=== PATIENT | male | born 1935 | race Caucasian/White ===

== ENCOUNTER 2016-12-19 23:58 | Inpatient (IN) | payer OTHER, MEDICARE ==
[~2016-12-19] VITALS: Ht 177.8 cm; Wt 79.1 kg
[~2016-12-19 23:58] MED LIST: METO25 PO
[2016-12-20] VITALS (8 sets, daily range): BP systolic 127–181; BP diastolic 66–89; PULSE 80–102; RESP 16–18; TEMP 96.7–98; O2SAT 96–99
[2016-12-20] MEDS ORDERED: LISI2.5T3 PO ×2 (00:08→00:09)
[2016-12-20] MEDS ORDERED: LORA-392 PO (00:09)
[2016-12-20] MEDS ORDERED: LORA-474 PO (00:09)
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
[2016-12-20 00:40] LABS: AUTOMATED NEUTROPHIL # 11.5 TH/MM3 (1.8-7.7); BASOPHIL # 0.1 TH/MM3 (0-0.2); BASOPHIL % 0.4 % (0.0-2.0); EOSINOPHIL % 0.1 % (0.0-4.0); HEMATOCRIT 44.8 % (39.0-51.0); HEMO FLAGS DIFF FINAL; LYMPH % 9.5 % (9.0-44.0); LYMPHOCYTE # 1.3 TH/MM3 (1.0-4.8); MEAN CELL VOLUME 90.3 FL (80.0-100.0); MEAN CORPUSCULAR HEMOGLOBIN 29.3 PG (27.0-34.0); MEAN CORPUSCULAR HGB CONC 32.4 % (32.0-36.0); MONO % 7.5 % (0.0-8.0); NEUT % 82.5 % (16.0-70.0); PLATELET COUNT 246 TH/MM3 (150-450); RED BLOOD COUNT 4.96 MIL/MM3 (4.50-5.90); RED CELL DISTRIBUTION WIDTH 14.7 % (11.6-17.2); WHITE BLOOD COUNT 13.9 TH/MM3 (4.0-11.0)
[2016-12-20 00:56] LABS: APTT (PATIENT) 32.1 SEC (24.3-30.1); PROTHROMBIN TIME - PATIENT 11.4 SEC (9.8-11.6)
--- NOTE | 2016-12-20 00:56 | RADRPT ---
EXAM DATE/TIME: 12/20/2016 00:28 [facility] COMPARISON: No previous studies available for comparison. INDICATIONS : Shortness of breath. MEDICAL HISTORY : Hypertension. SURGICAL HISTORY : None. ENCOUNTER: Initial ACUITY: 1 day PAIN SCORE: 0/10 LOCATION: Bilateral chest FINDINGS: A single view of the chest demonstrates the lungs to be symmetrically aerated without evidence of mas s, infiltrate or effusion. The cardiomediastinal contours are unremarkable. Osseous structures are intact. CONCLUSION: No evidence of acute cardiopulmonary disease. Lakhwinder Lomeli MD on December 20, 2016 at 0:54 Board Certified Radiologist. This report was verified electronically.
[2016-12-20 01:03] LABS: ANION GAP 18 MEQ/L (5-15); AST (GOT) 341 U/L (15-37); BICARBONATE 14.2 MEQ/L (21.0-32.0); BLOOD UREA NITROGEN 41 MG/DL (7-18); CHLORIDE 111 MEQ/L (98-107); GLOMERULAR FILTRATION RATE 45 ML/MIN (>89); MAGNESIUM 2.8 MG/DL (1.5-2.5); POTASSIUM 4.7 MEQ/L (3.5-5.1); SODIUM (NA) 143 MEQ/L (136-145)
[2016-12-20 01:04] LABS: ALT (GPT) 152 U/L (12-78)
[2016-12-20 01:12] LABS: ALKALINE PHOSPHATASE 50 U/L (45-117); TOTAL BILIRUBIN ADULT 1.4 MG/DL (0.2-1.0)
[2016-12-20 01:14] LABS: ACETAMINOPHEN LESS THAN 2.0 MCG/ML (10.0-30.0)
--- NOTE | 2016-12-20 01:23 | RADRPT ---
EXAM DATE/TIME: 12/20/2016 01:11 [facility] COMPARISON: CT BRAIN W/O CONTRAST, March 23, 2016, 8:14. INDICATIONS : Altered mental status. RADIATION DOSE: 35.90 CTDIvol (mGy) MEDICAL HISTORY : Hypertension. SURGICAL HISTORY : None. ENCOUNTER: Initial ACUITY: 1 day PAIN SCALE: 0/10 LOCATION: cranial TECHNIQUE: Multiple contiguous axial images were obtained of the head. Using automated exposure control and adj ustment of the mA and/or kV according to patient size, radiation dose was kept as low as reasonably a chievable to obtain optimal diagnostic quality images. DICOM format image data is available electro nically for review and comparison. FINDINGS: CEREBRUM: The ventricles are normal for age. No evidence of midline shift, mass lesion, hemorrhage or acute in farction. No extra-axial fluid collections are seen. POSTERIOR FOSSA: The cerebellum and brainstem are intact. The 4th ventricle is midline. The cerebellopontine angle i s unremarkable. EXTRACRANIAL: The visualized portion of the orbits is intact. SKULL: The calvaria is intact. No evidence of skull fracture. CONCLUSION: Negative noncontrast head CT. Lakhwinder Lomeli MD on December 20, 2016 at 1:21 Board Certified Radiologist. This report was verified electronically.
[2016-12-20] MEDS ORDERED: SODIUM CHLOR 0.9% 1000 ML INJ 1,000 ML IV ONE (02:00)
[2016-12-20] MEDS ORDERED: SODIUM CHLORIDE 0.9% FLUSH 10 ML FLUSH IV FLUSH PRN (03:30)
[2016-12-20] MEDS ORDERED: NALOXONE HCL 0.4 MG/ML AMP IV PRN (03:30)
[2016-12-20 04:37] LABS: BLOOD, URINE LARGE (NEG); GLUCOSE,URINE NEG (NEG); KETONE, URINE 150 mg/dL (NEG); MUCUS URINE FEW /lpf (OCC); NITRITE,URINE NEG (NEG); PH, URINE 5.5 (5.0-8.5); URINE COLOR YELLOW (YELLW/STRAW)
[2016-12-20 04:38] LABS: COMMENT (UR) CULT NOT INDICATED; CULTURE IF INDICATED CULT NOT INDICATED
[2016-12-20 04:41] LABS: AMPHETAMINE, URINE NEG (NEG); BARBITURATES, URINE NEG (NEG); COCAINE, URINE NEG (NEG)
[2016-12-20 08:34] LABS: CKMB 23.2 NG/ML (0.5-3.6)
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
--- NOTE | 2016-12-20 10:12 | RADRPT ---
EXAM DATE/TIME: 12/20/2016 09:54 [facility] COMPARISON: No previous studies available for comparison. INDICATIONS : Bilateral rib pain post fall primarily on left side. MEDICAL HISTORY : Hypertension. SURGICAL HISTORY : Left finger amputation. ENCOUNTER: Subsequent ACUITY: 4 - 6 days PAIN SCORE: 8/10 LOCATION: Bilateral chest ribs FINDINGS: There is fracture of left seventh rib which is acute. No definite pneumothorax is seen for technique. Chronic degenerative changes are present in the left shoulder and not changed. CONCLUSION: Left seventh rib fracture. Kylah Sumner MD on December 20, 2016 at 10:09 Board Certified Radiologist. This report was verified electronically.
[2016-12-20] MEDS: SODIUM CHLORIDE 0.9% FLUSH 10 ML FLUSH IV FLUSH SCH ×2 (10:19→21:00)
[2016-12-20] MEDS: SODIUM CHLOR 0.9% 1000 ML INJ 1,000 ML IV SCH (10:20)
--- NOTE | 2016-12-20 11:05 | EKG ---
Date Performed: 12/20/2016 Time Performed: 00:02:25 PTAGE: 81 years EKG: Sinus rhythm MARKED LEFT AXIS DEVIATION LAFB RIGHT BUNDLE BRANCH BLOCK ABNORMAL ECG NO PREVIOUS TRACING DOCTOR: Can Oscar Interpretating Date/Time 12/20/2016 11:04:34
--- NOTE | 2016-12-20 12:25 | PD.PSY.CON ---
Provisional Diagnosis Admission Date Dec 20, 2016 at 09:12 [place] I. Unspecified psychosis, history of depression and anxiety [place] II. Deferred [place] III. Hypertension, acute kidney injury, dehydration [place] IV. Continues distressing visual hallucination [place] V. 45 History of Present Illness Service Psychiatry Consult Requested By Primary Care Physician Unknown HPI The patient is a 81-year-old man, domiciled in a correction community in [facility], psychiatric history of depression and anxiety, no hospitalizations, 1SAs, on Lorazepam 2 mg tid, who now is more oriented and able to give history, medical history of History of hypertension who about 3 days prior to admission he states that he feels that he is not in his "right mine, hallucinating". Patient was found with multiple metabolic abnormalities. Now he is admitted due to Acute kidney injury secondary to dehydration, rhabdomyolysis. Multiple wounds ecchymosis abrasions on the extensor surfaces of the knees L gross. on psychiatric evaluation patient is calm, cooperative, pleasant. He says that in the last 6 months he has been having experiences of seeing people and having stressing, anxiety provoking visual and auditory hallucinations. He says that 2 days ago he was absolutely sure that many people were coming inside his house to steal his money and his furniture. He says that he also saw the county court judge and a physician coming together inside his house to examining him. He says that when he had these experiences he was very anxious and he could hear that they were talking to him, but he doesn't remember. Patient denies depressive symptoms, he says that he is a happy person , usually a loner, but he enjoys his life. Due to this hallucination he has been feeling anxious, sleeping poorly, and feeling paranoid. Patient stated that in the last 6 months he has had multiple episodes late this, but the last one was the worst. At this moment he denies visual and auditory hallucinations , he denies suicidal or homicidal ideation. Patient is fully oriented 3, Mini- Mental state was performed, patient scored 27/30. With just impairment found in recent recall. No attention deficit, no filtration of consciousness present. The patient denies the use of illicit drugs, he drinks alcohol occasionally. Review of Systems Constitutional: DENIES: Diaphoretic episodes, Fatigue, Fever, Weight gain, Weight loss, Chills, Dizziness, Change in appetite, Night Sweats Endocrine: DENIES: Heat/cold intolerance, Polydipsia, Polyuria, Polyphagia Eyes: DENIES: Blurred vision, Diplopia, Eye inflammation, Eye pain, Vision loss , Photosensitivity, Double Vision Ears, nose, mouth, throat: DENIES: Tinnitus, Hearing loss, Vertigo, Nasal discharge, Oral lesions, Throat pain, Hoarseness, Ear Pain, Running Nose, Epistaxis, Sinus Pain, Toothache, Odynophagia Respiratory: DENIES: Apneas, Cough, Snoring, Wheezing, Hemoptysis, Sputum production, Shortness of breath Cardiovascular: DENIES: Chest pain, Palpitations, Syncope, Dyspnea on Exertion , PND, Lower Extremity Edema, Orthopnea, Claudication Gastrointestinal: DENIES: Abdominal pain, Black stools, Bloody stools, Constipation, Diarrhea, Nausea, Vomiting, Difficulty Swallowing, Anorexia Genitourinary: DENIES: Sexual dysfunction, Urinary frequency, Urinary incontinence, Urgency, Hematuria, Dysuria, Nocturia, Penile Discharge, Testicular Pain, Testicular Swelling Integumentary: DENIES: Abnormal pigmentation, Nail changes, Pruritus, Rash Hematologic/lymphatic: DENIES: Bruising, Lymphadenopathy Immunologic/allergic: DENIES: Eczema, Urticaria Neurologic: DENIES: Abnormal gait, Headache, Localized weakness, Paresthesias, Seizures, Speech Problems, Tremor, Poor Balance Psychiatric: DENIES: Anxiety, Confusion, Mood changes, Depression, Hallucinations, Agitation, Suicidal Ideation, Homicidal Ideation, Delusions Past Family Social History Coded Allergies: No Known Allergies (Unverified , 03/23/16) Active Scripts Metoprolol Tartrate 25 mg 25 Mg Tab25 Mg PO Q12HR 31 Days Ref 2 Prov:Calos Suazo MD 03/24/16 Reported Medications Lorazepam (Ativan)1 Mg Tab1 Mg PO TID PRN (ANXIETY AND/OR AGITATION) Ref 0 12/20/16 Lisinopril 2.5 Mg Tab PO DAILY #30 TAB Ref 0 12/20/16 Discontinued Reported Medications Lorazepam (Ativan)0.5 Mg Tab0.5 Mg PO DAILY PRN (ANXIETY AND/OR AGITATION) Ref 0 12/20/16 Lisinopril 2.5 Mg Tab PO DAILY #30 TAB Ref 0 12/20/16 Current Medications Medications (Trade) Dose Ordered Sig/Kem Route Start Time Stop Time Status Last Admin (NS Flush) 2 ml UNSCH PRN IV FLUSH 7/12/17 03:30 (NS Flush) 2 ml BID IV FLUSH 12/20/16 09:00 12/20/16 10:19 Naloxone HCl 0.4 mg 0.4 mg UNSCH PRN IV 12/20/16 03:30 (NS 1000 ml Inj) 1,000 ml @ 125 mls/hr Q8H IV 12/20/16 09:15 12/20/16 10:20 Family History Patient denies family psychiatric history Social History Patient was born and raised in [place], he lives in [place] in a senior community, , he has 2 kids, supported by snf benefits, his highest level of education is 2 years college Patient's Strengths (min. 2) Good insight, good sense of humor, family support Physical Exam No tremors, no ideas, no withdrawal, Vital Signs Vital Signs Date Time Temp Pulse Resp B/P Pulse Ox O2 Delivery O2 Flow Rate FiO2 12/20/16 08:16 97.6 87 16 139/72 98 12/20/16 06:03 Room Air Lab Results Laboratory Tests Test 12/20/16 12/20/16 12/20/16 12/20/16 00:10 02:04 04:16 05:57 White Blood Count 13.9 Red Blood Count 4.96 Hemoglobin 14.5 Hematocrit 44.8 Mean Corpuscular Volume 90.3 Mean Corpuscular Hemoglobin 29.3 Mean Corpuscular Hemoglobin 32.4 Concent Red Cell Distribution Width 14.7 Platelet Count 246 Mean Platelet Volume 9.1 Neutrophils (%) (Auto) 82.5 Lymphocytes (%) (Auto) 9.5 Monocytes (%) (Auto) 7.5 Eosinophils (%) (Auto) 0.1 Basophils (%) (Auto) 0.4 Neutrophils # (Auto) 11.5 Lymphocytes # (Auto) 1.3 Monocytes # (Auto) 1.0 Eosinophils # (Auto) 0.0 Basophils # (Auto) 0.1 CBC Comment DIFF FINAL Differential Comment Prothrombin Time 11.4 Prothromb Time International 1.0 Ratio Activated Partial 32.1 Thromboplast Time Sodium Level 143 Potassium Level 4.7 Chloride Level 111 Carbon Dioxide Level 14.2 Anion Gap 18 Blood Urea Nitrogen 41 Creatinine 1.49 Estimat Glomerular Filtration 45 Rate Random Glucose 85 Calcium Level 9.2 Magnesium Level 2.8 Total Bilirubin 1.4 Aspartate Amino Transf 341 (AST/SGOT) Alanine Aminotransferase 152 (ALT/SGPT) Alkaline Phosphatase 50 Ammonia 15 Troponin I 0.06 0.03 Total Protein 7.7 Albumin 3.8 Lipase 66 Thyroid Stimulating Hormone 1.130 3rd Gen Salicylates Level LESS THAN 1.7 Acetaminophen Level LESS THAN 2.0 Ethyl Alcohol Level LESS THAN 3 Lactic Acid Level 1.3 Urine Color YELLOW Urine Turbidity CLEAR Urine pH 5.5 Urine Specific [place] 1.026 Urine Protein 100 Urine Glucose (UA) NEG Urine Ketones 150 Urine Occult Blood LARGE Urine Nitrite NEG Urine Bilirubin NEG Urine Urobilinogen LESS THAN 2.0 Urine Leukocyte Esterase NEG Urine RBC 1 Urine WBC LESS THAN 1 Urine Mucus FEW Microscopic Urinalysis Comment CULT NOT INDICATED Urine Opiates Screen NEG Urine Barbiturates Screen NEG Urine Amphetamines Screen NEG Urine Benzodiazepines Screen NEG Urine Cocaine Screen NEG Urine Cannabinoids Screen NEG Total Creatine Kinase 21948 Creatine Kinase MB 23.2 Creatine Kinase MB % 0.2 Result Diagram: 12/20/16912/20/169 Imaging Last Impressions Head CT 12/20/1612 Signed Impressions: Service Date/Time: Tuesday, December 20, 2016 01:11 - CONCLUSION: Negative noncontrast head CT. Lakhwinder Lomeli MD Chest X-Ray 12/20/1612 Signed Impressions: Service Date/Time: Tuesday, December 20, 2016 00:28 - CONCLUSION: No evidence of acute cardiopulmonary disease. Lakhwinder Lomeli MD Mental Status Examination Appearance man, multiple bruises in his face, age appearing, calm and cooperative and pleasant Speech: Unremarkable Orientation: x3 Memory: Unremarkable Thought Process: Logical Thought Content: Unremarkable Hallucination Type: None Attention and Concentration: Good Suicidal Ideation: No Previous Suicide Attempts: Yes Homicidal Ideation: No Previous Homicide Attempts: No Judgment: WNL Affect: Good Mood: Appropriate Motor Activity: Normal gait Assessment & Plan Problem List: (1) Unspecified psychosis Assessment & Plan: The patient is a 81-year-old man with psychiatric history of depression and anxiety, no hospitalizations, 1SAs, on Lorazepam 2 mg tid, who now is more oriented and able to give history, medical history of History of hypertension who about 3 days prior to admission he states that he feels that he is not in his "right mine, hallucinating". Patient was found with multiple metabolic abnormalities. Now he is admitted due to Acute kidney injury secondary to dehydration, rhabdomyolysis. Multiple wounds ecchymosis abrasions on the extensor surfaces of the knees L gross. on psychiatric evaluation patient is calm, cooperative, pleasant. He says that in the last 6 months he has been having experiences of seeing people and having stressing, anxiety provoking visual and auditory hallucinations. Patient has been also increasingly paranoid unguarded due to this hallucinations. However he denies depressive symptoms, he denies catina, he denies suicidal and homicidal ideation. At this moment etiology of this perceptual disturbances isn't clear. New onset visual hallucination at this age are usually related with underlying medical conditions, rather than psychiatric. UTI, acute kidney injury might have a preponderant role in this presentation, but investigation should continue. Alcohol or other substances intoxication or withdrawal have to be in the differential. Full medical workup needs to be done. CT scan is negative. Would consider a neurology consult to rule out neurological causes of hallucinations. Will start clonazepam 0.5 mg 3 times a day to substitute Ativan 2 mg 3 times a day. Will order Seroquel 12.5 mg at bedtime to help with psychosis. Patient might benefit of psychiatric admission in the medical- psychiatric unit. I will follow up. ICD Code: F29 Assessment & Plan Estimated LOS: Douglas Shelley MD Dec 20, 2016 12:24
[2016-12-20] MEDS: clonazePAM 0.5 MG TAB PO SCH ×2 (14:00→21:00)
--- NOTE | 2016-12-20 16:12 | EKG ---
Date Performed: 12/20/2016 Time Performed: 12:12:48 PTAGE: 81 years EKG: Sinus rhythm MARKED LEFT AXIS DEVIATION RIGHT BUNDLE BRANCH BLOCK ABNORMAL ECG PREVIOUS TRACING : 12/20/2016 07.37 Compared to prior tracing no significant change DOCTOR: Can Oscar Interpretating Date/Time 12/20/2016 16:11:34
--- NOTE | 2016-12-20 16:48 | EKG ---
Date Performed: 12/20/2016 Time Performed: 07:37:01 PTAGE: 81 years EKG: Sinus rhythm MARKED LEFT AXIS DEVIATION RIGHT BUNDLE BRANCH BLOCK ABNORMAL ECG PREVIOUS TRACING : 12/20/2016 00.02 Compared to prior tracing no significant change DOCTOR: Can Oscar Interpretating Date/Time 12/20/2016 16:47:32
[2016-12-20] MEDS: QUEtiapine FUMARATE 25 MG TAB PO SCH (20:52)
[2016-12-21] VITALS (8 sets, daily range): BP systolic 140–163; BP diastolic 67–79; PULSE 63–87; RESP 14–18; TEMP 97.8–98.7; O2SAT 93–97
[2016-12-21] MEDS: SODIUM CHLOR 0.9% 1000 ML INJ 1,000 ML IV SCH ×4 (01:03→23:30)
[2016-12-21] MEDS: clonazePAM 0.5 MG TAB PO SCH ×3 (06:00→22:34)
[2016-12-21 07:44] LABS: AUTOMATED NEUTROPHIL # 5.5 TH/MM3 (1.8-7.7); BASOPHIL # 0.1 TH/MM3 (0-0.2); BASOPHIL % 0.6 % (0.0-2.0); EOSINOPHIL # 0.3 TH/MM3 (0-0.4); EOSINOPHIL % 4.2 % (0.0-4.0); HEMATOCRIT 35.1 % (39.0-51.0); HEMO FLAGS DIFF FINAL; LYMPH % 18.8 % (9.0-44.0); LYMPHOCYTE # 1.5 TH/MM3 (1.0-4.8); MEAN CELL VOLUME 89.4 FL (80.0-100.0); MEAN CORPUSCULAR HEMOGLOBIN 29.6 PG (27.0-34.0); MEAN CORPUSCULAR HGB CONC 33.2 % (32.0-36.0); NEUT % 67.4 % (16.0-70.0); PLATELET COUNT 178 TH/MM3 (150-450); RED BLOOD COUNT 3.92 MIL/MM3 (4.50-5.90); RED CELL DISTRIBUTION WIDTH 14.2 % (11.6-17.2); WHITE BLOOD COUNT 8.1 TH/MM3 (4.0-11.0)
[2016-12-21] MEDS: SODIUM CHLORIDE 0.9% FLUSH 10 ML FLUSH IV FLUSH SCH ×2 (08:17→22:35)
[2016-12-21 08:38] LABS: ALKALINE PHOSPHATASE 34 U/L (45-117); ALT (GPT) 105 U/L (12-78); ANION GAP 8 MEQ/L (5-15); AST (GOT) 135 U/L (15-37); BLOOD UREA NITROGEN 29 MG/DL (7-18); CHLORIDE 115 MEQ/L (98-107); CREATINE KINASE 3985 U/L (39-308); GLOMERULAR FILTRATION RATE 89 ML/MIN (>89); POTASSIUM 3.7 MEQ/L (3.5-5.1); SODIUM (NA) 142 MEQ/L (136-145); TOTAL BILIRUBIN ADULT 0.9 MG/DL (0.2-1.0)
[2016-12-21 08:58] LABS: CKMB 12.2 NG/ML (0.5-3.6)
--- NOTE | 2016-12-21 10:22 | HHI.PR ---
Subjective Remarks patient awake and alert, no pain complains except for upper back discomfort- requesting for heating pads patient very clear in his mind that he was Hallucinating, I am sure- renarrated the story that he felt trap in a freight elevator for the past few days and was on the floor crawling and trying to get out" "I am sure it happened" now po 100%, oriented to person Objective Vitals Vital Signs Date Time Temp Pulse Resp B/P Pulse Ox O2 Delivery O2 Flow Rate FiO2 12/21/16 07:42 98.7 79 18 140/69 96 12/21/16 01:37 98.0 74 18 146/67 96 12/21/16 01:16 63 12/20/16 15:31 97.6 84 16 159/77 96 12/20/16 12:00 97.6 80 18 127/66 97 Result Diagram: 12/21/16 0725 12/21/16 0725 Imaging Last Impressions Head CT 12/20/16 001 Signed Impressions: Service Date/Time: Tuesday, December 20, 2016 01:11 - CONCLUSION: Negative noncontrast head CT. Lakhwinder Lomeli MD Chest X-Ray 12/20/16 0013 Signed Impressions: Service Date/Time: Tuesday, December 20, 2016 00:28 - CONCLUSION: No evidence of acute cardiopulmonary disease. Lakhwinder Lomeli MD Ribs X-Ray 12/20/16 0000 Signed Impressions: Service Date/Time: Tuesday, December 20, 2016 09:54 - CONCLUSION: Left seventh rib fracture. K. Paddy Sumner MD Objective Remarks awake and alert, oriented x 3 anicteric lungs clear regular rhythm abdomen soft, nontender, superficial hematoma right lower back area sacral area- mild erythema extremities no edema moves all extremities spontaenously- 5/5 individual muscle groups grossly no sensory deficits gait testing deferred- will ask PT to eval A/P Problem List: (1) Altered mental status ICD Code: R41.82 Status: Acute (2) Acute renal failure ICD Code: N17.9 Status: Acute (3) Rhabdomyolysis ICD Code: M62.82 Status: Acute Assessment and Plan 81-year-old male who was found on the floor by neighbors likely for the past 3- 4 days now patient states he was hallucinating. Acute kidney injury secondary to dehydration rhabdomyolysis. continue IVF. renal functions improving, CK trending down, non oliguric Multiple wounds ecchymosis abrasions on the extensor surfaces of the knees Wound care nurse consult Left 7th rib fracture - Incentive spirometry hourly without fail BAck pain- upper back- moves all extremities heating pads. if persist. Monitor BMP, LFTs- wont start any NSAIds or tylenol with abnormal levels Hallucinations- multifactorial- Underlying psychiatric history ? starting dementia- improved but still believed this happened adn appears mildly paranoid metabolic- renal functions improving - underlying psychiatric history- appreciate Dr. Perea's help Head CT negative- neuro paulino appear stable restarted on Ativan and Seroquel History of hypertension on RAYMUNDO inhibitor- held monitor Elevated liver function tests likely from rhabdo myelolysis trending down Will get PT OT consult. consider xrays if there is persistent pain Patient may benefit from med/psychiatry floor customer operations manager consult to look into home situation. possible SNF Out of bed to chairbid Problem Qualifiers (1) Altered mental status: Qualified Code: R41.0 - Disorientation Renato Sewell MD Dec 21, 2016 10:22
[2016-12-21] MEDS ORDERED: POTASSIUM CHLORIDE 10 MEQ CONTROLLED RELEASE TAB PO ONE (10:30)
[2016-12-21] MEDS: QUEtiapine FUMARATE 25 MG TAB PO SCH (22:34)
[2016-12-22] VITALS (7 sets, daily range): BP systolic 137–162; BP diastolic 76–86; PULSE 70–105; RESP 16–17; TEMP 97.4–98.2; O2SAT 95–98
[2016-12-22] MEDS: clonazePAM 0.5 MG TAB PO SCH ×3 (06:03→23:17)
[2016-12-22 07:57] LABS: ALT (GPT) 92 U/L (12-78); ANION GAP 8 MEQ/L (5-15); AST (GOT) 78 U/L (15-37); BICARBONATE 20.3 MEQ/L (21.0-32.0); BLOOD UREA NITROGEN 16 MG/DL (7-18); CHLORIDE 114 MEQ/L (98-107); GLOMERULAR FILTRATION RATE 95 ML/MIN (>89); POTASSIUM 3.4 MEQ/L (3.5-5.1); SODIUM (NA) 142 MEQ/L (136-145)
[2016-12-22 08:09] LABS: ALKALINE PHOSPHATASE 34 U/L (45-117); CREATINE KINASE 1320 U/L (39-308); TOTAL BILIRUBIN ADULT 0.7 MG/DL (0.2-1.0)
[2016-12-22 08:39] LABS: CKMB 4.7 NG/ML (0.5-3.6)
[2016-12-22] MEDS: SODIUM CHLORIDE 0.9% FLUSH 10 ML FLUSH IV FLUSH SCH ×2 (09:57→20:43)
[2016-12-22] MEDS: LIDOCAINE HCL 5% PATCH T-DERMAL SCH (09:57)
[2016-12-22] MEDS: SODIUM CHLOR 0.9% 1000 ML INJ 1,000 ML IV SCH ×2 (09:58→17:04)
--- NOTE | 2016-12-22 10:10 | HHI.PR ---
Subjective Remarks deficitely much more awake and alert, oriented x 3, no prompting needed- with response ff all commands stated that he "was hallucinating" generalized weakness Objective Vitals Vital Signs Date Time Temp Pulse Resp B/P Pulse Ox O2 Delivery O2 Flow Rate FiO2 12/22/16 08:00 97.6 80 17 156/76 96 12/22/16 04:40 97.7 79 16 151/77 98 12/22/16 00:45 97.4 73 16 137/76 95 12/21/16 20:30 97.8 82 16 155/79 93 12/21/16 19:54 98.1 84 18 162/72 95 12/21/16 15:45 97.8 87 18 163/77 97 12/21/16 12:07 98.3 82 14 144/67 97 I/O 12/21/16 12/21/16 12/21/16 12/22/16 12/22/16 12/22/16 07:00 15:00 23:00 07:00 15:00 23:00 Intake Total 1360 ml 120 ml 480 ml Output Total 200 ml 900 ml Balance 1360 ml -80 ml -420 ml Intake Oral 360 ml 120 ml 480 ml IV Total 1000 ml Output Urine Total 200 ml 900 ml # Voids 1 1 # Bowel Movements 0 0 Result Diagram: 12/21/16 0725 12/22/16 0706 Imaging Last Impressions Head CT 12/20/1612 Signed Impressions: Service Date/Time: Tuesday, December 20, 2016 01:11 - CONCLUSION: Negative noncontrast head CT. Lakhwinder Lomeli MD Chest X-Ray 12/20/1612 Signed Impressions: Service Date/Time: Tuesday, December 20, 2016 00:28 - CONCLUSION: No evidence of acute cardiopulmonary disease. Lakhwinder Lomeli MD Ribs X-Ray 12/20/16 0000 Signed Impressions: Service Date/Time: Tuesday, December 20, 2016 09:54 - CONCLUSION: Left seventh rib fracture. Kylah Sumner MD Objective Remarks awake and alert, oriented x 3 anicteric lungs clear regular rhythm abdomen soft, nontender, superficial hematoma right lower back area sacral area- mild erythema extremities no edema moves all extremities spontaneously- 5/5 individual muscle groups grossly no sensory deficits weak when stood up- PT at bedside skin with multiple skin breakdwons, ecchymoses- knees, arms A/P Problem List: (1) Altered mental status ICD Code: R41.82 Status: Acute (2) Acute renal failure ICD Code: N17.9 Status: Acute (3) Rhabdomyolysis ICD Code: M62.82 Status: Acute Assessment and Plan 81-year-old male who was found on the floor by neighbors likely for the past 3- 4 days now patient states he was hallucinating. Acute kidney injury secondary to dehydration rhabdomyolysis. continue IVF- decrease rate- to 70 cc/hr renal functions improving, CK trending down, non oliguric Multiple wounds ecchymosis abrasions on the extensor surfaces of the knees Wound care nurse consulted Left 7th rib fracture - Incentive spirometry hourly without fail BAck pain- upper back--improved moves all extremities heating pads. Lidoderm aptch Hallucinations- multifactorial- Underlying psychiatric history ? - MS and response improvign LIkely with dementia- metabolic- renal functions improving - underlying psychiatric history- appreciate Dr. Perea's help Head CT negative- neuro paulino appear stable restarted on Ativan and Seroquel History of hypertension on RAYMUNDO inhibitor- held monitor Elevated liver function tests likely from rhabdo myelolysis trending down PT OT consult. Patient may benefit from med/psychiatry floor or PT- still very weak on standing international project manager consult to look into home situation. possible SNF Out of bed to chair bid Problem Qualifiers (1) Altered mental status: Qualified Code: R41.0 - Disorientation Renato Sewell MD Dec 22, 2016 10:10
[2016-12-22] MEDS: POTASSIUM CHLORIDE 10 MEQ CONTROLLED RELEASE TAB PO SCH ×2 (12:00→20:43)
[2016-12-22] MEDS: POTASSIUM CHLORIDE INJ 30 MEQ in DEXT 5%-NACL 0.9% 1000 ML INJ 1,000 ML IV SCH ×2 (12:01→23:47)
--- NOTE | 2016-12-22 14:30 | PD.WCN.NOT ---
Wound Consult Description: Generalized-multiple abrasions, skin breakdown Communicated with: RN Missael Bhandari mountainside and Doctor Donato Recommendation: Please cleanse mulitple open abrasions to bilateral upper and lower extremeties with normal saline or wound truck car and bus cleaner and apply Xeroform in single layer just covering wound beds and cover with dry 4x4 gauze pads, secure with rolled gauze and tape and change every other day or PRN if saturated or dislodged. Please apply skin prep bid to Stage 1 sacral pressure injury, stage 1 pressure injury to posterior head and healing stage 2 pressure injury to posterior head and leave open to air Leave all dry intact scabs open to air. Please turn patient every 2 hours or PRN if in bed to keep pressure off posterior head and sacrum. Additional Information: Patient seen on [address] [place] [address] for evaluation of Generalized-multiple abrasions, and skin breakdown. Patient noted with multiple scabs and abrasions to bilateral upper extremities, lower extremities and face. Nurses are changing dressing for all open abrasion using Xeroform single layer dressing just over wound beds covered with dry 4x4 gauze, secured with rolled gauze and tape. This is appropriate for wounds. All scabs are noted intact and dry. Left all scabs open to air. Patient is complaining about of discomfort to posterior head and lower back area.Posterior head noted with non blanchable erythema measuring ~1cm x ~ 1cm that is near a resolving stage 2 that is ~2cm x ~2cm. Wound is dry and non draining and appears with new epithelial tissue.Periwound to stage 1 and healing stage 2 to posterior head present with blanchable erythema to periwound. Patient positioned on R side to reveal an area of non blanchable sacral erythema. Periwound is noted with blanchable erythema that is circumferential to non blanchable erythema.Stage 1 pressure injury to sacral area measures ~1cm x ~1cm Applied skin prep to all stage 1 pressure injuries and left open to air. Applied skin prep to healing stage 2 pressure injury and left open to air Caroline Tapia [facility] Dec 22, 2016 14:30
[2016-12-22] MEDS: QUEtiapine FUMARATE 25 MG TAB PO SCH (20:43)
[2016-12-22] MEDS: REMOVE OLD LIDOCAINE PATCH T-DERMAL SCH (20:48)
[2016-12-23] VITALS (8 sets, daily range): BP systolic 135–185; BP diastolic 69–92; PULSE 64–115; RESP 16–18; TEMP 97–99.1; O2SAT 94–97
[2016-12-23] MEDS: SODIUM CHLOR 0.9% 1000 ML INJ 1,000 ML IV SCH ×3 (05:18→17:15)
[2016-12-23] MEDS: clonazePAM 0.5 MG TAB PO SCH ×3 (06:14→22:05)
[2016-12-23] MEDS: SODIUM CHLORIDE 0.9% FLUSH 10 ML FLUSH IV FLUSH SCH ×2 (09:00→20:01)
[2016-12-23] MEDS: POTASSIUM CHLORIDE 10 MEQ CONTROLLED RELEASE TAB PO SCH ×2 (09:20→20:01)
[2016-12-23] MEDS: LIDOCAINE HCL 5% PATCH T-DERMAL SCH (09:21)
--- NOTE | 2016-12-23 10:05 | HHI.PR ---
Subjective Remarks no complains no fever chest pains or shortness of breath VS- tachycardic elevated BPs- earlier with one reading 190/77 history of hyeprtension on Lisinopril Objective Vitals Vital Signs Date Time Temp Pulse Resp B/P Pulse Ox O2 Delivery O2 Flow Rate FiO2 12/23/16 04:00 97.0 81 16 155/81 95 12/23/16 00:00 98.6 80 16 135/76 94 12/22/16 21:00 70 12/22/16 20:00 98.1 84 17 162/82 98 12/22/16 12:00 98.2 105 17 139/86 97 12/22/16 11:15 75 I/O 12/22/16 12/22/16 12/22/16 12/23/16 12/23/16 12/23/16 07:00 15:00 23:00 07:00 15:00 23:00 Intake Total 480 ml 840 ml 720 ml 720 ml Output Total 900 ml 1000 ml 500 ml 1150 ml Balance -420 ml -160 ml 220 ml -430 ml Intake Oral 480 ml 840 ml 720 ml 720 ml Output Urine Total 900 ml 1000 ml 500 ml 1150 ml # Voids 1 # Bowel Movements 0 0 Result Diagram: 12/21/16 0725 12/22/16 0706 Imaging Last Impressions Head CT 12/20/1612 Signed Impressions: Service Date/Time: Tuesday, December 20, 2016 01:11 - CONCLUSION: Negative noncontrast head CT. Lakhwinder Lomeli MD Chest X-Ray 12/20/1612 Signed Impressions: Service Date/Time: Tuesday, December 20, 2016 00:28 - CONCLUSION: No evidence of acute cardiopulmonary disease. Lakhwinder Lomeli MD Ribs X-Ray 12/20/16 0000 Signed Impressions: Service Date/Time: Tuesday, December 20, 2016 09:54 - CONCLUSION: Left seventh rib fracture. Kylah Sumner MD Objective Remarks awake and alert, oriented x 3 anicteric lungs clear regular rhyth HR 108-110- sinus abdomen soft, nontender, superficial hematoma right lower back area sacral area- mild erythema extremities no edema moves all extremities spontaneously- 5/5 individual muscle groups grossly no sensory deficits still with generalized weakness but stronger compared to yesterday skin with multiple skin breakdowns, ecchymoses- knees, arms A/P Problem List: (1) Altered mental status ICD Code: R41.82 Status: Acute (2) Acute renal failure ICD Code: N17.9 Status: Acute (3) Rhabdomyolysis ICD Code: M62.82 Status: Acute Assessment and Plan 81-year-old male who was found on the floor by neighbors likely for the past 3- 4 days now patient states he was hallucinating. Acute kidney injury secondary to dehydration rhabdomyolysis. improved. good po. DC IVF if CK down, good po renal functions improving, CK trending down, non oliguric Multiple wounds ecchymosis abrasions on the extensor surfaces of the knees Wound care nurse consulted Left 7th rib fracture - Incentive spirometry hourly without fail -prn pain meds BAck pain- upper back--improved moves all extremities heating pads. Lidoderm aptch Hallucinations- multifactorial- Underlying psychiatric history ? - MS and response improving LIkely with dementia- metabolic- renal functions improving - underlying psychiatric history- appreciate Dr. Perea's help Head CT negative- neuro paulino appear stable restarted on Ativan and Seroquel History of hypertension - mild tachycardia denies any pain on RAYMUNDO inhibitor- held due to SANTO start on BB and montior- LOpressor 12.5 mg po q 8 Hypokalemia- replaced with po K recheck today Elevated liver function tests likely from rhabdo myelolysis trending down PT OT daily Patient may benefit from med/psychiatry floor or PT- still very weak on standing infrastructure project manager consult to look into home situation. possible SNF Out of bed to chair bid Problem Qualifiers (1) Altered mental status: Qualified Code: R41.0 - Disorientation Renato Sewell MD Dec 23, 2016 10:05
[2016-12-23] MEDS: METOPROLOL TARTRATE 25 MG TAB PO SCH ×3 (11:56→22:05)
[2016-12-23 12:51] LABS: ALKALINE PHOSPHATASE 37 U/L (45-117); ALT (GPT) 84 U/L (12-78); ANION GAP 9 MEQ/L (5-15); AST (GOT) 47 U/L (15-37); BICARBONATE 22.9 MEQ/L (21.0-32.0); BLOOD UREA NITROGEN 15 MG/DL (7-18); CHLORIDE 110 MEQ/L (98-107); CREATINE KINASE 442 U/L (39-308); GLOMERULAR FILTRATION RATE 86 ML/MIN (>89); POTASSIUM 4.2 MEQ/L (3.5-5.1); SODIUM (NA) 142 MEQ/L (136-145); TOTAL BILIRUBIN ADULT 0.5 MG/DL (0.2-1.0)
[2016-12-23 13:10] LABS: CKMB 2.6 NG/ML (0.5-3.6)
[2016-12-23] MEDS: POTASSIUM CHLORIDE INJ 30 MEQ in DEXT 5%-NACL 0.9% 1000 ML INJ 1,000 ML IV SCH (13:19)
[2016-12-23] MEDS ORDERED: cloNIDine HCL 0.1 MG TAB PO PRN (17:45)
[2016-12-23] MEDS: QUEtiapine FUMARATE 25 MG TAB PO SCH (20:01)
[2016-12-23] MEDS: REMOVE OLD LIDOCAINE PATCH T-DERMAL SCH (20:01)
[2016-12-24] VITALS (7 sets, daily range): BP systolic 138–157; BP diastolic 74–93; PULSE 65–97; RESP 16–18; TEMP 96.7–98.1; O2SAT 96–98
[2016-12-24] MEDS: SODIUM CHLOR 0.9% 1000 ML INJ 1,000 ML IV SCH ×3 (01:03→17:15)
[2016-12-24] MEDS: POTASSIUM CHLORIDE INJ 30 MEQ in DEXT 5%-NACL 0.9% 1000 ML INJ 1,000 ML IV SCH ×2 (01:03→17:18)
[2016-12-24] MEDS: clonazePAM 0.5 MG TAB PO SCH ×2 (05:53→14:00)
[2016-12-24] MEDS: METOPROLOL TARTRATE 25 MG TAB PO SCH ×2 (05:54→14:00)
[2016-12-24] MEDS: LIDOCAINE HCL 5% PATCH T-DERMAL SCH (08:54)
[2016-12-24] MEDS: POTASSIUM CHLORIDE 10 MEQ CONTROLLED RELEASE TAB PO SCH ×2 (08:54→20:16)
[2016-12-24] MEDS: SODIUM CHLORIDE 0.9% FLUSH 10 ML FLUSH IV FLUSH SCH ×2 (08:54→20:16)
--- NOTE | 2016-12-24 09:41 | HHI.PR ---
Subjective Remarks feeling much better "not hallucinating" up on chair for all meals- po good PT working with him daily voiding well Objective Vitals Vital Signs Date Time Temp Pulse Resp B/P Pulse Ox O2 Delivery O2 Flow Rate FiO2 12/24/16 04:00 98.1 70 16 149/79 97 12/24/16 00:00 97.0 65 16 145/74 96 12/23/16 21:02 82 12/23/16 20:00 98.2 64 17 146/69 96 12/23/16 16:00 98.9 68 18 178/88 95 12/23/16 11:30 99.1 88 18 185/74 95 I/O 12/23/16 12/23/16 12/23/16 12/24/16 12/24/16 12/24/16 07:00 15:00 23:00 07:00 15:00 23:00 Intake Total 720 ml 1200 ml 480 ml Output Total 1150 ml 1250 ml 600 ml Balance -430 ml -50 ml -120 ml Intake Oral 720 ml 1200 ml 480 ml Output Urine Total 1150 ml 1250 ml 600 ml # Voids 3 # Bowel Movements 1 Result Diagram: 12/21/16 0725 12/23/16 1159 Imaging Last Impressions Head CT 12/20/1612 Signed Impressions: Service Date/Time: Tuesday, December 20, 2016 01:11 - CONCLUSION: Negative noncontrast head CT. Lakhwinder Lomeli MD Chest X-Ray 12/20/1612 Signed Impressions: Service Date/Time: Tuesday, December 20, 2016 00:28 - CONCLUSION: No evidence of acute cardiopulmonary disease. Lakhwinder Lomeli MD Ribs X-Ray 12/20/16 0000 Signed Impressions: Service Date/Time: Tuesday, December 20, 2016 09:54 - CONCLUSION: Left seventh rib fracture. KMike Sumner MD Objective Remarks awake and alert, oriented x 3 BP sa good anicteric lungs clear regular rhythm- HR improved 80s abdomen soft, nontender, superficial hematoma right lower back area- resolving sacral area- mild erythema extremities no edema moves all extremities spontaneously- 5/5 individual muscle groups grossly no sensory deficits strength improved skin with multiple skin breakdowns, ecchymoses- knees, arms- dry scabs A/P Problem List: (1) Altered mental status ICD Code: R41.82 Status: Acute (2) Acute renal failure ICD Code: N17.9 Status: Acute (3) Rhabdomyolysis ICD Code: M62.82 Status: Acute Assessment and Plan 81-year-old male who was found on the floor by neighbors likely for the past 3- 4 days now patient states he was hallucinating. Acute kidney injury secondary to dehydration rhabdomyolysis. improved. good po. DC IVF if CK down, good po renal functions improving, CK trending down, non oliguric labs pending Multiple wounds ecchymosis abrasions on the extensor surfaces of the knees Wound care nurse recommendations appreciated Left 7th rib fracture - Incentive spirometry hourly without fail- good efforts -prn pain meds BAck pain- upper back--improved moves all extremities heating pads. Lidoderm patch Hallucinations- multifactorial- Underlying psychiatric history ? - MS improved LIkely with dementia- metabolic- renal functions improving - underlying psychiatric history- appreciate Dr. 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 possible SNF Out of bed to chair bid Problem Qualifiers (1) Altered mental status: Qualified Code: R41.0 - Disorientation Renato Sewell MD Dec 24, 2016 09:41
[2016-12-24 14:07] LABS: ALT (GPT) 80 U/L (12-78); ANION GAP 9 MEQ/L (5-15); AST (GOT) 38 U/L (15-37); BICARBONATE 22.2 MEQ/L (21.0-32.0); BLOOD UREA NITROGEN 16 MG/DL (7-18); CHLORIDE 109 MEQ/L (98-107); GLOMERULAR FILTRATION RATE 77 ML/MIN (>89); POTASSIUM 4.1 MEQ/L (3.5-5.1); SODIUM (NA) 140 MEQ/L (136-145)
[2016-12-24 14:09] LABS: ALKALINE PHOSPHATASE 44 U/L (45-117); CREATINE KINASE 240 U/L (39-308); TOTAL BILIRUBIN ADULT 0.5 MG/DL (0.2-1.0)
[2016-12-24] MEDS: QUEtiapine FUMARATE 25 MG TAB PO SCH (20:16)
[2016-12-24] MEDS: REMOVE OLD LIDOCAINE PATCH T-DERMAL SCH (20:17)
[2016-12-25] VITALS (7 sets, daily range): BP systolic 121–153; BP diastolic 69–91; PULSE 67–94; RESP 15–18; TEMP 96–97.7; O2SAT 93–99
[2016-12-25] MEDS: clonazePAM 0.5 MG TAB PO SCH ×4 (00:20→21:49)
[2016-12-25] MEDS: METOPROLOL TARTRATE 25 MG TAB PO SCH ×4 (00:20→21:49)
[2016-12-25] MEDS: SODIUM CHLOR 0.9% 1000 ML INJ 1,000 ML IV SCH ×2 (02:33→08:51)
[2016-12-25] MEDS: POTASSIUM CHLORIDE INJ 30 MEQ in DEXT 5%-NACL 0.9% 1000 ML INJ 1,000 ML IV SCH (05:22)
[2016-12-25] MEDS: POTASSIUM CHLORIDE 10 MEQ CONTROLLED RELEASE TAB PO SCH ×2 (08:46→20:54)
[2016-12-25] MEDS: SODIUM CHLORIDE 0.9% FLUSH 10 ML FLUSH IV FLUSH SCH ×2 (08:48→20:54)
[2016-12-25] MEDS: LIDOCAINE HCL 5% PATCH T-DERMAL SCH (08:51)
--- NOTE | 2016-12-25 12:52 | HHI.PR ---
Subjective Remarks feels great a x xox 3, no complains po 100% Objective Vitals Vital Signs Date Time Temp Pulse Resp B/P Pulse Ox O2 Delivery O2 Flow Rate FiO2 12/25/16 10:43 76 12/25/16 08:00 96.4 70 18 129/70 97 12/25/16 04:00 96.9 67 15 129/75 94 12/25/16 00:00 97.0 71 18 153/91 93 12/24/16 20:51 82 12/24/16 16:00 97.7 89 18 138/84 96 I/O 12/24/16 12/24/16 12/24/16 12/25/16 12/25/16 12/25/16 07:00 15:00 23:00 07:00 15:00 23:00 Intake Total 480 ml 600 ml 480 ml 480 ml Output Total 600 ml 700 ml Balance -120 ml 600 ml 480 ml -220 ml Intake Oral 480 ml 600 ml 480 ml 480 ml Output Urine Total 600 ml 700 ml # Voids 4 3 # Bowel Movements 1 0 0 Result Diagram: 12/21/16 0725 12/24/16 1244 Imaging Last Impressions Head CT 12/20/1612 Signed Impressions: Service Date/Time: Tuesday, December 20, 2016 01:11 - CONCLUSION: Negative noncontrast head CT. Lakhwinder Lomeli MD Chest X-Ray 12/20/1612 Signed Impressions: Service Date/Time: Tuesday, December 20, 2016 00:28 - CONCLUSION: No evidence of acute cardiopulmonary disease. Lakhwinder Lomeli MD Ribs X-Ray 12/20/16 0000 Signed Impressions: Service Date/Time: Tuesday, December 20, 2016 09:54 - CONCLUSION: Left seventh rib fracture. Kylah Sumner MD Objective Remarks awake and alert, oriented x 3 BP sa good anicteric lungs clear regular rhythm- HR improved 80s abdomen soft, nontender, superficial hematoma right lower back area- resolving sacral area- mild erythema extremities no edema moves all extremities spontaneously- 5/5 individual muscle groups, no edema grossly no sensory deficits strength improved skin with multiple skin breakdowns, ecchymoses- knees, arms- dry scabs A/P Problem List: (1) Altered mental status ICD Code: R41.82 Status: Acute (2) Acute renal failure ICD Code: N17.9 Status: Acute (3) Rhabdomyolysis ICD Code: M62.82 Status: Acute Assessment and Plan 81-year-old male who was found on the floor by neighbors likely for the past 3- 4 days now patient states he was hallucinating. Acute kidney injury secondary to dehydration- resolved rhabdomyolysis- resolved. Multiple wounds ecchymosis abrasions on the extensor surfaces of the knees Wound care nurse recommendations appreciated Left 7th rib fracture - Incentive spirometry hourly without fail- good efforts -prn pain meds BAck pain- upper back--improved moves all extremities heating pads. Lidoderm patch Hallucinations- multifactorial- Underlying psychiatric history ? - MS improved LIkely with dementia- metabolic- renal functions improving - underlying psychiatric history- appreciate Dr. 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 possible SNF today if arranged Out of bed to chair bid Problem Qualifiers (1) Altered mental status: Qualified Code: R41.0 - Disorientation Renato Sewell MD Dec 25, 2016 12:52 Renato Sewell MD Dec 25, 2016 12:52
[2016-12-25] MEDS ORDERED: QUET1TAB7 PO (13:27)
[2016-12-25] MEDS ORDERED: POTA-243 PO (13:27)
[2016-12-25] MEDS ORDERED: LIDO5DIS5 T-DERMAL (13:27)
[2016-12-25] MEDS ORDERED: CLON.5 PO (13:27)
[2016-12-25] MEDS ORDERED: METO25TA3 PO (13:27)
--- NOTE | 2016-12-25 13:29 | HHI.DS ---
Discharge Summary Admission Date Dec 20, 2016 at 09:12 Discharge Date: Dec 25, 2016 Admitting Diagnosis AMS, Dehydration (1) Altered mental status ICD Code: R41.82 Diagnosis: Principal (2) Acute renal failure ICD Code: N17.9 Diagnosis: Principal (3) Rhabdomyolysis ICD Code: M62.82 Diagnosis: Principal Procedures none Brief History - From Admission Patient is a 81-year-old male who now is more oriented and able to give history. History of hypertension who states he lived by himself independently about 3 days prior to admission he states that he feels that he is not in his "right mind, hallucinating". Patient claims that "one his my some people are trying to steal his money" and states that he lives somewhere in an old hotel. He was found in the shower naked by friends. He states that he felt he is in the freight elevator and is trying to get out to fit and crawling for the past 3 days now. CBC/BMP: 12/21/16 0725 12/24/16 1244 Significant Findings Laboratory Tests Test 12/23/16 12/24/16 11:59 12:44 Chloride Level 110 MEQ/L 109 MEQ/L (98-107) (98-107) Estimat Glomerular Filtration 86 ML/MIN (>89) 77 ML/MIN (>89) Rate Aspartate Amino Transf 47 U/L (15-37) 38 U/L (15-37) (AST/SGOT) Alanine Aminotransferase 84 U/L (12-78) 80 U/L (12-78) (ALT/SGPT) Alkaline Phosphatase 37 U/L (45-117) 44 U/L (45-117) Total Creatine Kinase 442 U/L (39-308) Total Protein 6.2 GM/DL (6.4-8.2) Albumin 2.7 GM/DL 3.0 GM/DL (3.4-5.0) (3.4-5.0) Imaging Last Impressions Head CT 12/20/16 0013 Signed Impressions: Service Date/Time: Tuesday, December 20, 2016 01:11 - CONCLUSION: Negative noncontrast head CT. Lakhwinder Lomeli MD Chest X-Ray 12/20/16 0013 Signed Impressions: Service Date/Time: Tuesday, December 20, 2016 00:28 - CONCLUSION: No evidence of acute cardiopulmonary disease. Lakhwinder Lomeli MD Ribs X-Ray 12/20/16 0000 Signed Impressions: Service Date/Time: Tuesday, December 20, 2016 09:54 - CONCLUSION: Left seventh rib fracture. Kylah Sumner MD PE at Discharge awake and alert, oriented x 3 BP sa good anicteric lungs clear regular rhythm- HR improved 80s abdomen soft, nontender, superficial hematoma right lower back area- resolving sacral area- mild erythema extremities no edema moves all extremities spontaneously- 5/5 individual muscle groups, no edema grossly no sensory deficits strength improved skin with multiple skin breakdowns, ecchymoses- knees, arms- dry scabs Pt update on day of discharge no complains, taking po well pleasant and cooperative good urine output Hospital Course 81-year-old male who was found on the floor by neighbors likely for the past 3- 4 days now patient states he was hallucinating. Acute kidney injury secondary to dehydration- resolved rhabdomyolysis- resolved. Multiple wounds ecchymosis abrasions on the extensor surfaces of the knees Wound care nurse recommendations appreciated Left 7th rib fracture - Incentive spirometry hourly without fail- good efforts -prn pain meds BAck pain- upper back--improved moves all extremities heating pads. Lidoderm patch Hallucinations- multifactorial- Underlying psychiatric history ? - MS improved LIkely with dementia- metabolic- renal functions improving - underlying psychiatric history- appreciate Dr. 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 possible SNF today if arranged Pt Condition on Discharge: Stable Discharge Disposition: Discharge to SNF Discharge Time: <= 30 minutes Discharge Instructions DIET: Follow Instructions for: Heart Healthy Diet Speech Therapy-Diet Recommends: Regular Activities you can perform: Weight Bearing as Chantel Activities to Avoid: Prolonged Standing, Strenuous Activity New Orders: BASIC METABOLIC PROF - 12/28/16 New Medications: Clonazepam (Klonopin) 0.5 Mg Tab 0.5 MG PO Q8HR Agitation #20 TAB Lidocaine (Lidoderm) 5 % Adh..patch 1 PATCH T-DERMAL DAILY Pain Management #10 PATCH Metoprolol Tartrate (Metoprolol Tartrate) 25 Mg Tab 12.5 MG PO Q8HR HTN Days 30 TAB Potassium Chloride ER (Klor-Con 10) 10 Meq Tab 10 MEQ PO DAILY elec Days 14 TAB Quetiapine (Quetiapine) 25 Mg Tab 12.5 MG PO HS dem Days 30 TAB Discontinued Medications: Lisinopril (Lisinopril) 2.5 Mg Tab 0 PO DAILY #30 Ref 0 TAB Lorazepam (Ativan) 1 Mg Tab 1 MG PO TID PRN ANXIETY AND/OR AGITATION Ref 0 TAB Metoprolol Tartrate 25 mg (Metoprolol Tartrate 25 mg) 25 Mg Tab 25 MG PO Q12HR HTN Days 31 Ref 2 TAB Renato Sewell MD Dec 25, 2016 13:29
[2016-12-25 17:41] LABS: BLOOD, URINE NEG (NEG); COMMENT (UR) CULT NOT INDICATED; CULTURE IF INDICATED CULT NOT INDICATED; GLUCOSE,URINE NEG (NEG); KETONE, URINE NEG (NEG); MUCUS URINE FEW /lpf (OCC); NITRITE,URINE NEG (NEG); URINE COLOR YELLOW (YELLW/STRAW)
[2016-12-25] MEDS: QUEtiapine FUMARATE 25 MG TAB PO SCH (20:54)
[2016-12-25] MEDS: REMOVE OLD LIDOCAINE PATCH T-DERMAL SCH (20:54)
[2016-12-26] VITALS: BP 126/63; PULSE 65; RESP 16; TEMP 96.6; O2SAT 95
[2016-12-26 05:29] VITALS: BP 156/90; PULSE 81; RESP 18; O2SAT 94
[2016-12-26] MEDS: METOPROLOL TARTRATE 25 MG TAB PO SCH ×2 (05:30→13:34)
[2016-12-26] MEDS: clonazePAM 0.5 MG TAB PO SCH ×2 (05:30→13:34)
[2016-12-26 08:00] VITALS: BP 132/73; PULSE 67; RESP 18; TEMP 97.6; O2SAT 95
[2016-12-26] MEDS: LIDOCAINE HCL 5% PATCH T-DERMAL SCH (09:05)
[2016-12-26] MEDS: POTASSIUM CHLORIDE 10 MEQ CONTROLLED RELEASE TAB PO SCH (09:05)
[2016-12-26] MEDS: SODIUM CHLORIDE 0.9% FLUSH 10 ML FLUSH IV FLUSH SCH (09:06)
--- NOTE | 2016-12-26 09:07 | HHI.PR ---
Subjective Remarks Patient in the chair. Says he feels much better Says she would like to go home. He is also declining PT at home or nurses. He denies any pain. No n/v/d/ c. No fever or chills. He is eating well. patient says he lives alone and his family is in [place]. Patient says he is able to take care of himself. Objective Vitals Vital Signs Date Time Temp Pulse Resp B/P Pulse Ox O2 Delivery O2 Flow Rate FiO2 12/26/16 08:00 97.6 67 18 132/73 95 12/26/16 05:29 81 18 156/90 94 12/26/16 00:00 96.6 65 16 126/63 95 12/25/16 20:00 96.9 70 17 121/69 98 12/25/16 16:00 96.0 75 18 131/69 95 12/25/16 12:00 97.7 94 18 137/79 99 12/25/16 10:43 76 I/O 12/25/16 12/25/16 12/25/16 12/26/16 12/26/16 12/26/16 06:59 14:59 22:59 06:59 14:59 22:59 Intake Total 480 ml 800 ml 480 ml 480 ml Output Total 700 ml 700 ml 300 ml Balance -220 ml 800 ml -220 ml 180 ml Intake Oral 480 ml 800 ml 480 ml 480 ml Output Urine Total 700 ml 700 ml 300 ml # Voids 5 # Bowel Movements 0 0 0 0 Result Diagram: 12/24/16 1244 Imaging Last Impressions Head CT 12/20/1612 Signed Impressions: Service Date/Time: Tuesday, December 20, 2016 01:11 - CONCLUSION: Negative noncontrast head CT. Lakhwinder Lomeli MD Chest X-Ray 12/20/1612 Signed Impressions: Service Date/Time: Tuesday, December 20, 2016 00:28 - CONCLUSION: No evidence of acute cardiopulmonary disease. Lakhwinder Lomeli MD Ribs X-Ray 12/20/16 0000 Signed Impressions: Service Date/Time: Tuesday, December 20, 2016 09:54 - CONCLUSION: Left seventh rib fracture. KMike Sumner MD Objective Remarks GENERAL: Elderly male, in bed doesn't appear in acute distress. SKIN: Multiple ecchymoses and skin breakdown. CARDIOVASCULAR: Regular rate and rhythm. RESPIRATORY: No accessory muscle use. Clear to auscultation. Breath sounds equal bilaterally. GASTROINTESTINAL: Abdomen soft, non-tender, nondistended. Hepatic and splenic margins not palpable. MUSCULOSKELETAL: Extremities without clubbing, cyanosis, or edema. No obvious deformities. NEUROLOGICAL: Awake and alert. No obvious cranial nerve deficits. Motor grossly within normal limits. Five out of 5 muscle strength in the arms and legs. Normal speech. PSYCHIATRIC: Appropriate mood and affect; insight and judgment normal. Procedures none A/P Problem List: (1) Altered mental status ICD Code: R41.82 Status: Acute (2) Acute renal failure ICD Code: N17.9 Status: Acute (3) Rhabdomyolysis ICD Code: M62.82 Status: Acute Assessment and Plan 81-year-old male who was found on the floor by neighbors likely for the past 3- 4 days now patient states he was hallucinating. Patient improved. SANTO , rahabdo resolved. patient is discharged home . he is declining PT or nurses. Patient to follwo up as OP with PcP and consultants. Acute kidney injury secondary to dehydration- resolved rhabdomyolysis- resolved. Multiple wounds ecchymosis abrasions on the extensor surfaces of the knees Wound care nurse recommendations appreciated Left 7th rib fracture - Incentive spirometry hourly without fail- good efforts -prn pain meds BAck pain- upper back--improved moves all extremities heating pads. Lidoderm patch Hallucinations- multifactorial- Underlying psychiatric history ? - MS improved LIkely with dementia- metabolic- renal functions improving - underlying psychiatric history- appreciate Dr. 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 Out of bed to chair bid Plan to DC home. patient refusing PT or nurses at home. Case management following for DC plan. Problem Qualifiers (1) Altered mental status: Qualified Code: R41.0 - Disorientation Valeria Tompkins MD Dec 26, 2016 09:07
[2016-12-26 12:00] VITALS: BP 160/77; PULSE 76; RESP 18; TEMP 96.9; O2SAT 100
--- NOTE | 2016-12-26 14:56 | HHI.DS ---
Discharge Summary Admission Date Dec 20, 2016 at 09:12 Discharge Date: Dec 26, 2016 Admitting Diagnosis AMS, Dehydration (1) Altered mental status ICD Code: R41.82 Diagnosis: Principal (2) Acute renal failure ICD Code: N17.9 Diagnosis: Principal (3) Rhabdomyolysis ICD Code: M62.82 Diagnosis: Principal Procedures none Brief History - From Admission Patient is a 81-year-old male who now is more oriented and able to give history. History of hypertension who states he lived by himself independently about 3 days prior to admission he states that he feels that he is not in his "right mind, hallucinating". Patient claims that "one his my some people are trying to steal his money" and states that he lives somewhere in an old hotel. He was found in the shower naked by friends. He states that he felt he is in the freight elevator and is trying to get out to fit and crawling for the past 3 days now. CBC/BMP: 12/24/16 1244 Significant Findings Laboratory Tests Test 12/24/16 12/25/16 12:44 17:15 Chloride Level 109 MEQ/L (98-107) Estimat Glomerular Filtration 77 ML/MIN (>89) Rate Aspartate Amino Transf 38 U/L (15-37) (AST/SGOT) Alanine Aminotransferase 80 U/L (12-78) (ALT/SGPT) Alkaline Phosphatase 44 U/L (45-117) Albumin 3.0 GM/DL (3.4-5.0) Urine Mucus FEW /lpf (OCC) Imaging Last Impressions Head CT 12/20/1612 Signed Impressions: Service Date/Time: Tuesday, December 20, 2016 01:11 - CONCLUSION: Negative noncontrast head CT. Lakhwinder Lomeli MD Chest X-Ray 12/20/1612 Signed Impressions: Service Date/Time: Tuesday, December 20, 2016 00:28 - CONCLUSION: No evidence of acute cardiopulmonary disease. Lakhwinder Lomeli MD Ribs X-Ray 12/20/16 0000 Signed Impressions: Service Date/Time: Tuesday, December 20, 2016 09:54 - CONCLUSION: Left seventh rib fracture. Kylah Sumner MD PE at Discharge GENERAL: Elderly male, in bed doesn't appear in acute distress. SKIN: Multiple ecchymoses and skin breakdown. CARDIOVASCULAR: Regular rate and rhythm. RESPIRATORY: No accessory muscle use. Clear to auscultation. Breath sounds equal bilaterally. GASTROINTESTINAL: Abdomen soft, non-tender, nondistended. Hepatic and splenic margins not palpable. MUSCULOSKELETAL: Extremities without clubbing, cyanosis, or edema. No obvious deformities. NEUROLOGICAL: Awake and alert. No obvious cranial nerve deficits. Motor grossly within normal limits. Five out of 5 muscle strength in the arms and legs. Normal speech. PSYCHIATRIC: Appropriate mood and affect; insight and judgment normal. Hospital Course 81-year-old male who was found on the floor by neighbors likely for the past 3- 4 days now patient states he was hallucinating. Patient improved. SANTO , rahabdo resolved. patient is discharged home . he is declining PT or nurses. Patient to follwo up as OP with PcP and consultants. Acute kidney injury secondary to dehydration- resolved rhabdomyolysis- resolved. Multiple wounds ecchymosis abrasions on the extensor surfaces of the knees Wound care nurse recommendations appreciated Left 7th rib fracture - Incentive spirometry hourly without fail- good efforts -prn pain meds BAck pain- upper back--improved moves all extremities heating pads. Lidoderm patch Hallucinations- multifactorial- Underlying psychiatric history ? - MS improved LIkely with dementia- metabolic- renal functions improving - underlying psychiatric history- appreciate Dr. Perea's help Head CT negative- neuro paulino appear stable on Ativan and Seroquel- doing very well on current psych regimen History of hypertension/tachycardia denies any pain doing very well on LOpressor 12.5 mg po q 8 Hypokalemia- improved recheck today Elevated liver function tests likely from rhabdo myelolysis trending down PT OT daily Patient can benefit from med psych floor- if accepted and [facility] and PT will be ff him there if accepted if not outpatient case manager ff home situation. Out of bed to chair bid DC home instable condition. patient refusing PT or nurses at home. To follow up as OP with PCP and consultants as need. Pt Condition on Discharge: Stable Discharge Disposition: Discharge Home Discharge Time: > 30 minutes Discharge Instructions DIET: Follow Instructions for: Heart Healthy Diet Speech Therapy-Diet Recommends: Regular Activities you can perform: Weight Bearing as Chantel Activities to Avoid: Strenuous Activity Follow up Referrals: PCP Follow-up - 12/27/16 with PCP New Orders: BASIC METABOLIC PROF - 12/28/16 New Medications: Clonazepam (Klonopin) 0.5 Mg Tab 0.5 MG PO Q8HR Agitation #20 TAB Lidocaine (Lidoderm) 5 % Adh..patch 1 PATCH T-DERMAL DAILY Pain Management #10 PATCH Metoprolol Tartrate (Metoprolol Tartrate) 25 Mg Tab 12.5 MG PO Q8HR HTN Days 30 TAB Potassium Chloride ER (Klor-Con 10) 10 Meq Tab 10 MEQ PO DAILY elec Days 14 TAB Quetiapine (Quetiapine) 25 Mg Tab 12.5 MG PO HS dem Days 30 TAB Discontinued Medications: Lisinopril (Lisinopril) 2.5 Mg Tab 0 PO DAILY #30 Ref 0 TAB Lorazepam (Ativan) 1 Mg Tab 1 MG PO TID PRN ANXIETY AND/OR AGITATION Ref 0 TAB Metoprolol Tartrate 25 mg (Metoprolol Tartrate 25 mg) 25 Mg Tab 25 MG PO Q12HR HTN Days 31 Ref 2 TAB Valeria Tompkins MD Dec 26, 2016 14:56
== END 2016-12-26 16:46 | disposition home or self-care (01) | DRG 683 ==
LOC: NEPE 23:58 → NEDA 12-20 03:31 → NEPFCDU 12-20 06:05 → OBSVTOIN 12-20 09:12 → N06A 12-21 20:21
PROVIDERS: ADMIT Hospitalist; ATTEND Hospitalist
DX: N17.9 Acute kidney failure, unspecified (principal); M62.82 Rhabdomyolysis; E86.0 Dehydration; S22.32XA Fracture of one rib, left side, initial encounter for closed fracture; R41.82 Altered mental status, unspecified; I10 Essential (primary) hypertension; S80.212A Abrasion, left knee, initial encounter; S80.211A Abrasion, right knee, initial encounter; M54.9 Dorsalgia, unspecified; E87.6 Hypokalemia; R79.89 Other specified abnormal findings of blood chemistry; Z89.022 Acquired absence of left finger(s); X58.XXXA Exposure to other specified factors, initial encounter; Y92.039 Unspecified place in apartment as the place of occurrence of the external cause
CPT/HCPCS: 70450; 71010; 71111; 80053; 80307; 81001; 82140; 82550; 82552; 83605; 83690; 83735; 84443; 84484; 85025; 85610; 85730; 93005; J3480; J7030; J7042